=== PATIENT | male | born 1995 | race Caucasian/White ===

== ENCOUNTER 2018-07-16 12:07 | Emergency (ER) | payer BC ==
--- NOTE | 2018-07-16 12:28 | ED ---
Throat Pain/Nasal Congestion - HPI Summary HPI Summary: Pt is a 23 y/o male who presents to the ED c/o eye drainage. He states 2 days ago his right eye began to get red, and yesterday it became inflamed. Pts upper eyelid is swollen and has yellow discharge. His mother is an [employer] and prescribed him Ofloxacin eyedrops, because he initially thought it was pink eye. The pain is rated a 3/10 in severity. - History of Current Complaint Chief Complaint: EDEyeProblem Time Seen by Provider: 07/16/18 12:17 Hx Obtained From: Patient Onset/Duration: Gradual Onset, Lasting Days - 2, Still Present Severity: Moderate Associated Signs And Symptoms: Positive: Negative Cough: None Related History: Other (Noted In Comments) - Eye inflamed - Allergies/Home Medications Allergies/Adverse Reactions: Allergies Allergy/AdvReac Type Severity Reaction Status Date / Time cephalexin [From Keflex] Allergy See Comment Verified 07/16/18 12:14 PMH/Surg Hx/FS Hx/Imm Hx Endocrine/Hematology History: Denies: Hx Diabetes Cardiovascular History: Denies: Hx Hypertension Infectious Disease History: No Infectious Disease History: Denies: Traveled Outside the [place] in Last 30 Days - Family History Known Family History: Positive: Diabetes, Respiratory Disease - asthma, lung CA - Social History Alcohol Use: Weekly Alcohol Amount: on weekends Hx Substance Use: No Substance Use Type: Reports: None Hx Tobacco Use: No Smoking Status (MU): Never Smoked Tobacco Review of Systems Negative: Fever Positive: Drainage, Other - abscess right eye, redness All Other Systems Reviewed And Are Negative: Yes Physical Exam - Summary Physical Exam Summary: Appearance: Well appearing, no pain distress Skin: warm, dry, reflects adequate perfusion Head/face: normal Eyes: EOMI, PADMINI, right eye not injected, grossly inflamed area of mid-upper eyelid with abscess or stye, draining through the mucosal surface ENT: mucous membranes moist Neck: supple, non-tender Respiratory: CTA, breath sounds present Cardiovascular: RRR, pulses symmetrical Abdomen: non-tender, soft Bowel Sounds: present Musculoskeletal: normal, strength/ROM intact Neuro: normal, sensory motor intact, A&Ox3 Triage Information Reviewed: Yes Vital Signs On Initial Exam: Initial Vitals Temp Pulse Resp BP Pulse Ox 98.7 F 98 14 158/90 98 07/16/18 12:09 07/16/18 12:09 07/16/18 12:09 07/16/18 12:09 07/16/18 12:09 Vital Signs Reviewed: Yes Procedures - Incision and Drainage Right Eye Site: Upper right eyelid Instrument(s): Needle - blunt and 21g Packing: Other - drained small amount of purulence. Had placed Manjeet lens in eye to prevent injury. Eye irrigated following mucosal surface site drainage Diagnostics - Vital Signs Vital Signs Temp Pulse Resp BP Pulse Ox 07/16/18 12:09 98.7 F 98 14 158/90 98 - Laboratory Lab Statement: Any lab studies that have been ordered have been reviewed, and results considered in the medical decision making process. EENT Course/Dx - Course Course Of Treatment: Nurse's note reviewed. I&D done. Placed on Bactrim. Cx taken. - Diagnoses Provider Diagnoses: Hordeolum Discharge - Sign-Out/Discharge Documenting (check all that apply): Patient Departure - Discharge - Discharge Plan Condition: Improved Disposition: HOME Prescriptions: Sulfamethox/Trimethoprim DS* [Bactrim DS 800/160 TAB*] 1 tab PO BID #10 tab Patient Education Materials: Alexander (ED) Referrals: [facility] [Primary Care Provider] - Additional Instructions: Continue on the eyedrops. Warm compresses to the area several times per day. Tylenol, ibuprofen as needed for soreness. Return if worse, continued to drain , expanding redness around your eye, or other concerns. Follow up with your [facility] doctor in the next 1-2 days. - Billing Disposition and Condition Condition: IMPROVED Disposition: Home - Attestation Statements Document Initiated by Scribe: Yes Documenting Scribe: Archana Magana Provider For Whom Scribe is Documenting (Include Credential): Dante Romo MD Scribe Attestation: Archana Duran, scribed for Dante Romo MD on 07/16/18 at 1421. Scribe Documentation Reviewed: Yes Provider Attestation: The documentation as recorded by the Archana mcguire accurately reflects the service I personally performed and the decisions made by me, Dante Romo MD Status of Scribe Document: Viewed
[2018-07-16 12:58] VITALS: BP 134/87
== END 2018-07-16 12:53 | disposition home or self-care (01) ==
LOC: ED 12:07
DX: H00.011 Hordeolum externum right upper eyelid (principal)
CPT/HCPCS: 67938; 87070; 87077; 87205; 87640; 87641; 99282